=== PATIENT | male | born 1980 | race Two or more races ===

== ENCOUNTER 2018-12-07 19:04 | Emergency (ER) | payer MEDICAID ==
[~2018-12-07] VITALS: Ht 172.7 cm; Wt 90.7 kg
[2018-12-07 19:13] VITALS: BP 125/80
== END 2018-12-07 20:04 | disposition left against medical advice (07) ==
LOC: ER 19:14
DX: H57.12 Ocular pain, left eye (principal); Z53.21 Procedure and treatment not carried out due to patient leaving prior to being seen by health care provider